=== PATIENT | male | born 1950 | race Caucasian/White ===

== ENCOUNTER 2018-02-14 08:14 | Emergency (ER) | payer MEDICARE, OTHER ==
[2018-02-14 08:25] VITALS: BP 168/80; PULSE 107; RESP 16; TEMP 97.5
--- NOTE | 2018-02-14 09:03 | ED ---
Skin/Abscess/FB HPI - General Chief complaint: Skin/Abscess/Foreign Body Stated complaint: Leg Pain/Bleeding Time Seen by Provider: 02/14/18 08:36 Source: patient, RN notes reviewed, old records reviewed Mode of arrival: ambulatory Limitations: no limitations - History of Present Illness Initial comments: Patient is a 67-year-old male chief complaint of the vehicles being over his right herrera. He initially cut the area one week ago, and Today while in the shower getting dressed he reopened the scab. Patient reports would not stop bleeding. Does not know if tetanus is up to date. - Related Data Home Medications Medication Instructions Recorded Confirmed Aspirin EC [Ecotrin Low Dose] 81 mg PO HS 02/14/18 02/14/18 Cetirizine HCl [Zyrtec] 10 mg PO DAILY 02/14/18 02/14/18 Cholecalciferol (Vitamin D3) 2,000 unit PO DAILY 02/14/18 02/14/18 [Vitamin D3] Cyanocobalamin (Vitamin B-12) 1,000 mcg PO DAILY 02/14/18 02/14/18 [Vitamin B-12] Hydrochlorothiazide [Hydrodiuril] 25 mg PO DAILY 02/14/18 02/14/18 Latanoprost [Xalatan 0.005%] 1 drop BOTH EYES HS 02/14/18 02/14/18 Losartan [Cozaar] 25 mg PO DAILY 02/14/18 02/14/18 Montelukast [Singulair] 10 mg PO HS 02/14/18 02/14/18 Niacin 500 mg PO HS 02/14/18 02/14/18 Simvastatin [Zocor] 40 mg PO HS 02/14/18 02/14/18 amLODIPine [Norvasc] 10 mg PO DAILY 02/14/18 02/14/18 metFORMIN HCL [Glucophage] 1,000 mg PO QA 02/14/18 02/14/18 metFORMIN HCL [Glucophage] 500 mg PO HS 02/14/18 02/14/18 Allergies Allergy/AdvReac Type Severity Reaction Status Date / Time No Known Allergies Allergy Verified 02/14/18 08:33 Review of Systems ROS Statement: Those systems with pertinent positive or pertinent negative responses have been documented in the HPI. ROS Other: All systems not noted in ROS Statement are negative. Past Medical History Past Medical History: COPD, Diabetes Mellitus, Hyperlipidemia, Hypertension History of Any Multi-Drug Resistant Organisms: None Reported Past Surgical History: Orthopedic Surgery Additional Past Surgical History / Comment(s): left knee surgery, bilateral cataract extraction Past Psychological History: No Psychological Hx Reported Smoking Status: Never smoker Past Alcohol Use History: Rare Past Drug Use History: None Reported General Exam - General Exam Comments Initial Comments: This is a 67 year old male, no acute distress. Limitations: no limitations General appearance: alert, in no apparent distress Head exam: Present: atraumatic, normocephalic, normal inspection Eye exam: Present: normal appearance, PERRL, EOMI. Absent: scleral icterus, conjunctival injection, periorbital swelling ENT exam: Present: normal exam, mucous membranes moist Neck exam: Present: normal inspection. Absent: tenderness, meningismus, lymphadenopathy Respiratory exam: Present: normal lung sounds bilaterally. Absent: respiratory distress, wheezes, rales, rhonchi, stridor Cardiovascular Exam: Present: regular rate, normal rhythm, normal heart sounds. Absent: systolic murmur, diastolic murmur, rubs, gallop, clicks Extremities exam: Present: normal inspection, full ROM, normal capillary refill , other (bleeding varicose vein from right herrera. ). Absent: tenderness, pedal edema, joint swelling, calf tenderness Back exam: Present: normal inspection Neurological exam: Present: alert, oriented X3, CN II-XII intact Psychiatric exam: Present: normal affect, normal mood Skin exam: Present: warm, dry, intact, normal color. Absent: rash Course Vital Signs 02/14/18 08:22 Temperature 97.5 F L Pulse Rate 107 H Respiratory 16 Rate Blood Pressure 168/80 O2 Sat by Pulse 96 Oximetry Procedures - Laceration Laceration #1 Site: lower extremity (right herrera) Size (cm): 1 Description: linear Depth: simple, single layer Pre-repair: wound explored, irrigated extensively Type of Sutures: other Size of Sutures: 6-0 Number of Sutures: 1 Technique: other (figure 8. ) Patient Tolerated Procedure: well, no complications Medical Decision Making - Medical Decision Making This patient is a 67 year old male with bleeding varicose vein. Bleeding was stopped after placing figure 8 stitch in area, as well as dressing with gel foam. Discussed remove in 2 days, and remove stitch in 7-10 days. Discussed follow up and monitoring for infection. Disposition Clinical Impression: Bleeding from varicose vein Disposition: HOME SELF-CARE Condition: Good Additional Instructions: Patient advised to keep the leg up and elevated. Apply a dressing and pressure if the bleeding does recur. Patient needs return in approximately 5-7 days to have the stitch removed. Return to the emergency department if any alarming signs or symptoms occur. Monitor for any signs of infection including redness swelling or drainage. Patient should always have a bandage over the stitch site to prevent abrasion or reopening. Is patient prescribed a controlled substance at d/c from ED?: No When asked, does pt state using other controlled substances?: No If prescribed controlled substance>3 days was MAPS reviewed?: No If opioid is for acute pain is fill amount 7 days or less?: No If Rx opioid, was Start Talking consent form obtained?: No Referrals: Michele Mack DO [Primary Care Provider] - 1-2 days Time of Disposition: 09:03
== END 2018-02-14 09:17 | disposition home or self-care (01) ==
LOC: EC 08:14
DX: I83.891 Varicose veins of right lower extremity with other complications (principal); E78.5 Hyperlipidemia, unspecified; I10 Essential (primary) hypertension; E11.9 Type 2 diabetes mellitus without complications; J44.9 Chronic obstructive pulmonary disease, unspecified; Z79.82 Long term (current) use of aspirin; Z79.84 Long term (current) use of oral hypoglycemic drugs; Z79.899 Other long term (current) drug therapy
CPT/HCPCS: 12001; 99283